=== PATIENT | male | born 1970 | race Caucasian/White ===

== ENCOUNTER 2016-11-15 11:12 | Emergency (ER) | payer BC | END 2016-11-15 12:11 | disposition short-term general hospital (02) | LOC: ER 11:12 | DX: S61.111A Laceration without foreign body of right thumb with damage to nail, initial encounter (principal); S61.310A Laceration without foreign body of right index finger with damage to nail, initial encounter; I25.10 Atherosclerotic heart disease of native coronary artery without angina pectoris; E11.9 Type 2 diabetes mellitus without complications; F17.210 Nicotine dependence, cigarettes, uncomplicated; Z90.49 Acquired absence of other specified parts of digestive tract; Z90.89 Acquired absence of other organs; Z79.899 Other long term (current) drug therapy; Z79.84 Long term (current) use of oral hypoglycemic drugs; W27.8XXA Contact with other nonpowered hand tool, initial encounter | CPT/HCPCS: 96374; 96375 ==